=== PATIENT | male | born 1965 | race Caucasian/White ===

== ENCOUNTER → 2020-10-07 | Outpatient (CLI) | payer OTHER ==
[~2020-10-07] MED LIST: ACETAMINOPHEN500 M1 PO; ASPIRIN CHEWABL81 MG PO; B-100 COMPLEX100 MG PO; COREG 12.5MG12.5 MG PO; CYCLOBENZAPRINE10 MG PO; ENTRESTO 24 MG1 EACH PO; GLIMEPIRIDE1 MG PO; ISOCHRON40 MG PO; KLOR-CON M1010 MEQ PO; LASIX20 MG PO; PAIN RELIEF1 EACH EXT; PRAVASTATIN SOD10 MG PO; PROAIR DIGIHAL90 MCG INH; ZYLOPRIM 100 M100 MG PO
== END ==
LOC: HEART CORB 10:27
DX: I50.22 Chronic systolic (congestive) heart failure (principal); R06.02 Shortness of breath; R94.39 Abnormal result of other cardiovascular function study; I51.7 Cardiomegaly
CPT/HCPCS: 78452; A9502; J2785

== ENCOUNTER → 2020-11-27 | Outpatient (CLI) | payer OTHER ==
[2020-11-27 15:16] LABS: HEMOGLOBIN 15.3 gm/dl (14.0-17.5); RED BLOOD COUNT 5.46 M/UL (4.20-5.50)
[2020-11-27 15:36] LABS: BUN/CREATININE RATIO 12 (0-10)
== END ==
LOC: LAB 14:37
PROVIDERS: Internal Medicine Interventional Cardiology
DX: I50.23 Acute on chronic systolic (congestive) heart failure (principal); I50.812 Chronic right heart failure; R60.9 Edema, unspecified; R53.83 Other fatigue; E11.9 Type 2 diabetes mellitus without complications; E78.5 Hyperlipidemia, unspecified; I44.4 Left anterior fascicular block; R94.31 Abnormal electrocardiogram [ECG] [EKG]
CPT/HCPCS: 36415; 80048; 85025; 85610; 85730; 93005

== ENCOUNTER → 2020-11-30 | Outpatient (CLI) | payer OTHER | LOC: CATH 08:00 | DX: I25.118 Atherosclerotic heart disease of native coronary artery with other forms of angina pectoris (principal); I11.0 Hypertensive heart disease with heart failure; I50.9 Heart failure, unspecified; E11.9 Type 2 diabetes mellitus without complications; I42.0 Dilated cardiomyopathy; E78.5 Hyperlipidemia, unspecified; F17.290 Nicotine dependence, other tobacco product, uncomplicated; Z88.8 Allergy status to other drugs, medicaments and biological substances; Z79.82 Long term (current) use of aspirin; Z79.84 Long term (current) use of oral hypoglycemic drugs; Z79.899 Other long term (current) drug therapy | CPT/HCPCS: 93571; 99152; 99153; C1769; C1887; C1894; J0153; J1644; J2250; J3010; J7030; Q9967 ==

== ENCOUNTER → 2021-11-02 | Outpatient (CLI) | payer OTHER | LOC: KOH-I 15:31 | DX: F17.210 Nicotine dependence, cigarettes, uncomplicated (principal) | CPT/HCPCS: 71271 ==